=== PATIENT | female | born 1990 | race Caucasian/White ===

== ENCOUNTER → 2023-08-22 12:50 | Outpatient (REF) | payer OTHER, SELFPAY | LOC: PNTC 12:50 | PROVIDERS: ATTENDING PHYSICIAN Obstetrics & Gynecology | DX: O99.210 Obesity complicating pregnancy, unspecified trimester (principal); O09.819 Supervision of pregnancy resulting from assisted reproductive technology, unspecified trimester | CPT/HCPCS: 76811 ==

== ENCOUNTER → 2023-10-10 08:34 | Outpatient (REF) | payer OTHER, SELFPAY | LOC: PNTC 08:34 | PROVIDERS: ATTENDING PHYSICIAN Obstetrics & Gynecology | DX: O99.210 Obesity complicating pregnancy, unspecified trimester (principal); O09.819 Supervision of pregnancy resulting from assisted reproductive technology, unspecified trimester | CPT/HCPCS: 76816 ==

== ENCOUNTER → 2023-10-21 10:00 | Outpatient (REF) | payer OTHER, SELFPAY ==
--- NOTE | 2023-10-21 10:40 | PN.DIAED06 ---
Meal Plan - Gestational
- Breakfast
Gestational Diabetes Meal Plan Name: 1800 calories
Breakfast - Total Carbohydrate (grams): 30
Breakfast - Starch Carbohydrate: 1
Breakfast - Fruit Carbohydrate: 0
Breakfast - Milk Carbohydrate: 1
Breakfast - Nonstarchy Vegetables: Yes
Breakfast - Meat/Protein: 1
Breakfast - Fat: 2
- Morning Snack
Morning Snack - Total Carbohydrate (grams): 30
Morning Snack - Starch Carbohydrate: 1
Morning Snack - Fruit Carbohydrate: 0
Morning Snack - Milk Carbohydrate: 1
Morning Snack - Nonstarchy Vegetables: Yes
Morning Snack - Meat/Protein: 0.5
Morning Snack - Fat: 0
- Lunch
Lunch - Total Carbohydrate (grams): 45
Lunch - Starch Carbohydrate: 2
Lunch - Fruit Carbohydrate: 1
Lunch - Milk Carbohydrate: 0
Lunch - Nonstarchy Vegetables: Yes
Lunch - Meat/Protein: 2
Lunch - Fat: 1
- Afternoon Snack
Afternoon Snack - Total Carbohydrate (grams): 30
Afternoon Snack - Starch Carbohydrate: 1
Afternoon Snack - Fruit Carbohydrate: 1
Afternoon Snack - Milk Carbohydrate: 0
Afternoon Snack - Nonstarchy Vegetables: Yes
Afternoon Snack - Meat/Protein: 1
Afternoon Snack - Fat: 0
- Dinner
Dinner - Total Carbohydrate (grams): 45
Dinner - Starch Carbohydrate: 2
Dinner - Fruit Carbohydrate: 0
Dinner - Milk Carbohydrate: 1
Dinner - Nonstarchy Vegetables: Yes
Dinner - Meat/Protein: 2
Dinner - Fat: 2
- Evening Snack
Evening Snack - Total Carbohydrate (grams): 30
Evening Snack - Starch Carbohydrate: 1
Evening Snack - Fruit Carbohydrate: 0
Evening Snack - Milk Carbohydrate: 1
Evening Snack - Nonstarchy Vegetables: Yes
Evening Snack - Meat/Protein: 1
Evening Snack - Fat: 1
--- NOTE | 2023-10-21 11:33 | PN.DIAED02 ---
Referral
Referred For: Gestational Diabetes Self-Management Training
PHI Release Authorization Form Signed: Yes
Care Plan
- Education Needs
Patient Education Needs: Preconception care//gestational diabetes management
Recommended Diabetes Training Program based on assessment: Gestational Diabetes Management
- Plan of Care
Plan of Care:
Perla seen today for new diagnosis Gestational Diabetes. Discussed what is occurring in her body and importance to maintain good blood sugar levels to prevent complications (macrosomia,hypoglycemia) to . EDC 01/02/24. States an RX for One
touch was called into her pharmacy but she is unclear as to who called it in. Provided with and instructions given on the One Touch Verio Flex glucometer. Good return demonstration, did require increasing lancing device to a setting of 4. Result 125
mg/dl 1 hr post prandial breakfast. She is aware of proper testing technique and expected results (FBS <95 mg/dl and 2 hr pp < 120 mg/dl). To test FBS and 2 hr pp every meal. Log sheet provided to record results and she will call in the reading
every Tuesday to Lola at [facility]. 5'2', 170# pre . Provided with 1800 beba ADA GDM meal plan. Discussed macronutrients and impact each has on glucose metabolism. Discussed reading food labels. Handout on snack options given (but
was left in the office so I emailed to her). 'Choose your foods' booklet given. Suggest eating more whole foods for snack rather than Kind bars, Lesley bars, protein shakes. Perla does walk and her goal is to walk everyday now that the weather is
getting nicer. Phone number provided for follow up questions. Perla with call either Jean Carlos or myself if the correct supplies are not at the pharmacy.
== END ==
LOC: DES 10:00
PROVIDERS: ATTENDING PHYSICIAN Obstetrics & Gynecology
DX: O24.419 Gestational diabetes mellitus in pregnancy, unspecified control (principal)
CPT/HCPCS: 99078

== ENCOUNTER 2023-11-13 13:14 | Observation (INO) | payer OTHER, SELFPAY ==
[2023-11-13 13:32] VITALS: BP 146/80; BMI 35.7
[2023-11-13 14:24] LABS: % Basophils 0.2 % (0-2); % Eosinophils 0.4 % (0-6); % Immature Granulocytes 0.4 % (0-0.5); % Lymphocytes 16.6 % (20.5-51.1); % Monocytes 6.1 % (1.7-9.3); % Neutrophils 76.3 % (42.2-75.2); Absolute Eosinophils 0.1 10^3/uL (0-0.7); Absolute Immature Granulocytes 0.1 10^3/uL (0-0.05); Absolute Lymphocytes 2.3 10^3/uL (1.2-3.4); Absolute Monocytes 0.8 10^3/uL (0.1-0.6); Absolute Neutrophils 10.4 10^3/uL (1.4-6.5); Hematocrit 32.6 % (37.0-47.0); Hemoglobin 10.9 g/dL (12.0-16.0); Mean Corp Hgb Conc. 33.4 g/dL (33.0-37.0); Mean Corpuscular Hgb 29.2 pg (27.0-31.0); Mean Corpuscular Volume 87.4 fL (81.0-99.0); Mean Platelet Volume 11.4 fL (7.4-10.4); Nucleated Red Blood Cells % 0 %; Platelet Count 250 10^3/uL (130-400); Red Blood Cell Count 3.73 10^6/uL (4.20-5.40); Red Cell Dist. Width 13.6 % (11.5-14.5); White Blood Cell Count 13.7 10^3/uL (4.8-10.8)
[2023-11-13 14:25] LABS: Urine Albumin Negative (Neg - Trace); Urine Bilirubin Negative (Negative); Urine Character Clear (Clear); Urine Color Yellow; Urine Glucose Negative (Negative); Urine Ketone Trace (Negative); Urine Leukocyte Negative (Negative); Urine Nitrite Negative (Negative); Urine Occult Blood Trace (Negative); Urine Urobilinogen Negative (Neg - 1+); Urine pH 6.5 (5.0-9.0)
[2023-11-13 14:33] LABS: ALT (SGPT) 10 U/L (0-35); AST (SGOT) 21 U/L (14-36); Albumin 2.8 g/dl (3.5-5.0); Alkaline Phosphatase 214 U/L (38-126); Blood Urea Nitrogen 14 mg/dl (7-17); Calcium 9.7 mg/dl (8.4-10.2); Carbon Dioxide 20 mmol/L (22-30); Estimated Creatinine Clearance > 125 ml/min; Glucose 76 mg/dl (70-99); Potassium 4.5 mmol/L (3.5-5.1); Sodium 134 mmol/L (135-145); Total Bilirubin 0.3 mg/dl (0.2-1.3); Total Protein 5.6 g/dl (6.3-8.2); eGFR > 60.00
[2023-11-13 14:43] LABS: Protein/creatinine Ratio 0.2; Urine Protein 18 mg/dl
[2023-11-13 14:45] LABS: Urine Bacteria Few (Negative); Urine Red Blood Cell 0-2 /HPF (0-2); Urine White Cell 0-2 /HPF (0-5)
[2023-11-13 14:52] LABS: Chloride 106 mmol/L (98-107)
== END 2023-11-13 15:44 | disposition home or self-care (01) ==
LOC: LDRP 13:14
PROVIDERS: Obstetrics & Gynecology; ADMITTING PHYSICIAN Obstetrics & Gynecology; FAMILY PHYSICIAN Family Medicine
DX: O47.03 False labor before 37 completed weeks of gestation, third trimester (principal); Z3A.32 32 weeks gestation of pregnancy; O24.410 Gestational diabetes mellitus in pregnancy, diet controlled; Z88.1 Allergy status to other antibiotic agents; Z88.3 Allergy status to other anti-infective agents; Z88.0 Allergy status to penicillin; Z88.2 Allergy status to sulfonamides; R03.0 Elevated blood-pressure reading, without diagnosis of hypertension
CPT/HCPCS: 59025; 80053; 81003; 81015; 82570; 84156; 85025; 86850; 86900; 86901; G0378

== ENCOUNTER 2023-11-30 10:07 | Observation (INO) | payer OTHER, SELFPAY ==
[2023-11-30 10:22] VITALS: BP 138/85; BMI 35.9
[2023-11-30 10:53] LABS: Hematocrit 33.2 % (37.0-47.0); Hemoglobin 11.4 g/dL (12.0-16.0); Mean Corp Hgb Conc. 34.3 g/dL (33.0-37.0); Mean Corpuscular Hgb 29.5 pg (27.0-31.0); Mean Corpuscular Volume 85.8 fL (81.0-99.0); Mean Platelet Volume 11.8 fL (7.4-10.4); Platelet Count 251 10^3/uL (130-400); Red Blood Cell Count 3.87 10^6/uL (4.20-5.40); Red Cell Dist. Width 13.9 % (11.5-14.5); White Blood Cell Count 12.7 10^3/uL (4.8-10.8)
[2023-11-30 11:09] LABS: ALT (SGPT) 11 U/L (0-35); AST (SGOT) 24 U/L (14-36); Albumin 3.1 g/dl (3.5-5.0); Alkaline Phosphatase 259 U/L (38-126); Blood Urea Nitrogen 15 mg/dl (7-17); Calcium 8.9 mg/dl (8.4-10.2); Carbon Dioxide 22 mmol/L (22-30); Chloride 107 mmol/L (98-107); Estimated Creatinine Clearance 121 ml/min; Glucose 84 mg/dl (70-99); Potassium 4.3 mmol/L (3.5-5.1); Sodium 133 mmol/L (135-145); Total Bilirubin 0.2 mg/dl (0.2-1.3); Total Protein 5.8 g/dl (6.3-8.2); eGFR > 60.00
[2023-11-30 11:25] LABS: Protein/creatinine Ratio 0.4; Urine Protein 30 mg/dl
== END 2023-11-30 11:35 | disposition home or self-care (01) ==
LOC: PNTC-IN 10:07
PROVIDERS: ADMITTING PHYSICIAN Obstetrics & Gynecology
DX: O24.410 Gestational diabetes mellitus in pregnancy, diet controlled (principal); Z3A.36 36 weeks gestation of pregnancy; O09.813 Supervision of pregnancy resulting from assisted reproductive technology, third trimester; O99.213 Obesity complicating pregnancy, third trimester; O14.03 Mild to moderate pre-eclampsia, third trimester; Z88.1 Allergy status to other antibiotic agents; Z88.3 Allergy status to other anti-infective agents; Z88.0 Allergy status to penicillin; Z88.2 Allergy status to sulfonamides
CPT/HCPCS: 59025; 76815; 80053; 82570; 84156; 85027; G0378

== ENCOUNTER 2023-12-12 19:39 | Inpatient (IN) | payer OTHER, SELFPAY ==
[2023-12-12 20:09] VITALS: BP 143/72; BMI 34.8
[2023-12-12] MEDS: CYTOTEC 50 MICROGRAM VAG (20:38)
[2023-12-12 20:39] LABS: % Basophils 0.3 % (0-2); % Eosinophils 2.1 % (0-6); % Immature Granulocytes 0.3 % (0-0.5); % Lymphocytes 18.5 % (20.5-51.1); % Monocytes 5.2 % (1.7-9.3); % Neutrophils 73.6 % (42.2-75.2); Absolute Eosinophils 0.2 10^3/uL (0-0.7); Absolute Lymphocytes 2.1 10^3/uL (1.2-3.4); Absolute Monocytes 0.6 10^3/uL (0.1-0.6); Absolute Neutrophils 8.2 10^3/uL (1.4-6.5); Hematocrit 29.9 % (37.0-47.0); Hemoglobin 10.5 g/dL (12.0-16.0); Mean Corp Hgb Conc. 35.1 g/dL (33.0-37.0); Mean Corpuscular Hgb 29.5 pg (27.0-31.0); Mean Platelet Volume 11.7 fL (7.4-10.4); Nucleated Red Blood Cells % 0 %; Platelet Count 232 10^3/uL (130-400); Red Blood Cell Count 3.56 10^6/uL (4.20-5.40); Red Cell Dist. Width 13.5 % (11.5-14.5); White Blood Cell Count 11.2 10^3/uL (4.8-10.8)
[2023-12-12 21:07] LABS: ALT (SGPT) 12 U/L (0-35); AST (SGOT) 24 U/L (14-36); Albumin 2.9 g/dl (3.5-5.0); Alkaline Phosphatase 304 U/L (38-126); Blood Urea Nitrogen 15 mg/dl (7-17); Calcium 9.1 mg/dl (8.4-10.2); Carbon Dioxide 19 mmol/L (22-30); Chloride 109 mmol/L (98-107); Estimated Creatinine Clearance 119 ml/min; Glucose 117 mg/dl (70-99); Potassium 3.9 mmol/L (3.5-5.1); Sodium 133 mmol/L (135-145); Total Bilirubin 0.2 mg/dl (0.2-1.3); Total Protein 5.5 g/dl (6.3-8.2); eGFR > 60.00
[2023-12-12] MEDS: ZOLOFT 50 MG PO (23:08)
[2023-12-13] MEDS: CYTOTEC 50 MICROGRAM PO (00:49)
[2023-12-13] MEDS: LR 1000 IV ×2 (04:00→06:00)
[2023-12-13] MEDS: MORPHINE SULFATE 2 MG IV (04:03)
[2023-12-13] MEDS: FENTANYL/BUPIVACAINE 100 EPIDURAL (05:09)
[2023-12-13] MEDS: SUBLIMAZE 100 MCG EPIDURAL (05:09)
[2023-12-13 06:06] LABS: Glucose - Point of Care 92 mg/dl (70-99)
[2023-12-13] MEDS: CYTOTEC PO (06:07)
[2023-12-13 07:58] LABS: Glucose - Point of Care 73 mg/dl (70-99)
[2023-12-13] MEDS: PITOCIN 30 UNITS/NSS 500 ML IV (08:44)
[2023-12-13] MEDS: TYLENOL 650 MG PO (20:18)
[2023-12-13] MEDS: MOTRIN 600 MG PO (20:19)
[2023-12-14 05:19] LABS: Hematocrit 30.2 % (37.0-47.0); Hemoglobin 10.5 g/dL (12.0-16.0)
[2023-12-14] MEDS: PRENATAL PLUS 1 TABLET PO (07:53)
[2023-12-14] MEDS: SENOKOT-S 1 TABLET PO (07:54)
[2023-12-14] MEDS: MOTRIN 600 MG PO ×2 (14:39→22:04)
[2023-12-14] MEDS: TYLENOL 650 MG PO ×2 (14:39→22:04)
[2023-12-14] MEDS: ZOLOFT 50 MG PO (22:04)
[2023-12-15] MEDS: SENOKOT-S 1 TABLET PO (09:23)
[2023-12-15] MEDS: PRENATAL PLUS 1 TABLET PO (09:23)
[2023-12-15] MEDS: MOTRIN 600 MG PO (09:23)
[2023-12-15] MEDS: TYLENOL 650 MG PO (09:25)
[2023-12-16 14:01] LABS: Syphilis/T. pallidum Ab Reflex Negative (Negative)
== END 2023-12-15 13:16 | disposition home or self-care (01) | DRG 807 ==
LOC: LDRP 19:39
PROVIDERS: Obstetrics & Gynecology; ADMITTING PHYSICIAN Obstetrics & Gynecology
PROC: 3E0P7VZ Introduction of Hormone into Female Reproductive, Via Natural or Artificial Opening (ICD-10-PCS; 2023-12-12)
PROC: 10E0XZZ Delivery of Products of Conception, External Approach (ICD-10-PCS; 2023-12-13)
PROC: 0KQM0ZZ Repair Perineum Muscle, Open Approach (ICD-10-PCS; 2023-12-13)
DX: O69.81X0 Labor and delivery complicated by cord around neck, without compression, not applicable or unspecified (principal); Z37.0 Single live birth; Z3A.37 37 weeks gestation of pregnancy; O70.1 Second degree perineal laceration during delivery; Z88.1 Allergy status to other antibiotic agents; Z88.3 Allergy status to other anti-infective agents; Z88.0 Allergy status to penicillin; Z88.2 Allergy status to sulfonamides; K58.9 Irritable bowel syndrome, unspecified; J45.990 Exercise induced bronchospasm; O24.429 Gestational diabetes mellitus in childbirth, unspecified control; O99.344 Other mental disorders complicating childbirth; F41.9 Anxiety disorder, unspecified; O99.214 Obesity complicating childbirth; O14.04 Mild to moderate pre-eclampsia, complicating childbirth
CPT/HCPCS: 88307; 80053; 82962; 85014; 85018; 85025; 86780; 86850; 86900; 86901